=== PATIENT | female | born 1985 | race Caucasian/White ===

== ENCOUNTER 2017-08-04 08:54 | Emergency (ER) | payer SELFPAY ==
[~2017-08-04] VITALS: Ht 142.2 cm; Wt 61.2 kg
--- NOTE | 2017-08-04 08:54 | NUR ---
PATIENT BIBA TO BED 2.
[2017-08-04 08:57] VITALS: BP 138/93
--- NOTE | 2017-08-04 09:10 | NUR ---
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 EMS WAS CALLED BY PTS OLDER SISTER, STATES SHE TOOK SOME OTC SLEEP AID AND 4 TABS OF 5/325MG OF HYDROCODONE. PT VOMITTED UP THE MEDICATION 10 MINS AFTER TAKING. PT PLACED ON ALL MONITORS VSS. PT IS AXO X4, AMBULATES TO BED WITH STEADY GAIT. PT ANSWERING QUESTIONS IN FULL SENTENCES, DENIES N/V OR SOB UPON ASSESSMENT. PT STATES SHE TOOK THE MEDICATION TO FALL ASLEEP AND SHE HAS TAKEN THE SAME THING IN THE PAST. PT DENIES SI/HI. PENDING MD LEÓN.
--- NOTE | 2017-08-04 09:16 | NUR ---
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 EMS WAS CALLED BY PTS OLDER SISTER, STATES SHE TOOK SOME OTC SLEEP AID AND 4 TABS OF 5/325MG OF HYDROCODONE. PT VOMITTED UP THE MEDICATION 10 MINS AFTER TAKING. PT PLACED ON ALL MONIOTS VSS. PT IS AXO X4, AMBULATES TO BED WITH STEADY GAIT. PT ANSWERING QUESTIONS IN FULL SENTENCES, DENIES N/V OR SOB UPON ASSESSMENT. PENDING MD LEÓN.
--- NOTE | 2017-08-04 09:21 | NUR ---
DR BETTENCOURT AT BEDSIDE TO RADHAAL
--- NOTE | 2017-08-04 09:56 | NUR ---
PT SITTING UP IN BED EATING FROM BREAKFAST TRAY.
[2017-08-04 10:43] LABS: BASOPHILS % (AUTO) 0.4 % (0.0-2.0); EOSINOPHILS # (AUTO) 0.1 K/uL (0-0.4); HEMATOCRIT 46.4 % (36-48); HEMOGLOBIN 15.7 g/dL (12.0-16.0); LYMPHOCYTES # (AUTO) 1.2 K/uL (2.5-16.5); LYMPHOCYTES % (AUTO) 17.9 % (20.5-51.1); MEAN CORPUSCULAR HEMOGLOBIN 30 pg (27-31); MEAN CORPUSCULAR HGB CONC 34 g/dL (33-37); MEAN CORPUSCULAR VOLUME 88.1 fL (80-94); MONOCYTES # (AUTO) 0.4 K/uL (0.8-1.0); NEUTROPHILS # (AUTO) 4.9 K/uL (1.8-7.7); NEUTROPHILS % (AUTO) 74.7 % (42.2-75.2); PLATELET COUNT (AUTO) 278 K/uL (140-450); RED BLOOD CELL COUNT(AUTO) 5.27 MIL/uL (4.20-5.40); RED CELL DISTRIBUTION WIDTH 13.2 % (11.6-13.7); WHITE BLOOD COUNT (AUTO) 6.6 K/uL (4.8-10.8)
[2017-08-04 10:56] LABS: APPEARANCE,URINE CLEAR (CLEAR); BILIRUBIN,URINE NEGATIVE (NEGATIVE); BLOOD, URINE TRACE-L (NEGATIVE); LEUKOCYTE ESTERASE ,URINE NEGATIVE (NEGATIVE); NITRITE, URINE NEGATIVE (NEGATIVE); PH,URINE 6.5 (5.0-9.0); UGLUCOSE NEGATIVE (NEGATIVE)
[2017-08-04 11:02] LABS: COLOR,URINE STRAW (YELLOW)
[2017-08-04 11:19] LABS: ACETAMINOPHEN 20.7 ug/ml (10-30); ALBUMIN 4.1 g/dL (3.4-5.0); ASPARTATE AMINOTRANSFERASE 27 U/L (15-37); CHLORIDE 104 mmol/L (98-107); CREATININE 0.7 mg/dL (0.6-1.3); GFR ARICAN-AMERICAN 124 mL/min (>90); GLUCOSE 82 mg/dL (74-106); POTASSIUM 3.8 mmol/L (3.5-5.1); SODIUM SERUM 141 mmol/L (136-145); THYROID STIMULATING HORMONE 0.77 uIU/mL (0.34-3.74); UREA NITROGEN, BLOOD 9 mg/dL (7-18)
[2017-08-04 11:21] LABS: ANION GAP 13.3 (8-16); CARBON DIOXIDE 27.5 mmol/L (21-32); SALICYLATE < 2.8 mg/dL (2.8-20.0)
[2017-08-04 11:54] VITALS: BP 131/78
--- NOTE | 2017-08-04 11:55 | NUR ---
Patient discharged with v/s stable. Written and verbal after care instructions given and explained. Patient verbalized understanding. Ambulatory with steady gait. All questions addressed prior to discharge. Advised to follow up with PMD.
== END 2017-08-04 11:15 | disposition home or self-care (01) ==
LOC: MED 08:54
DX: T45.0X1A Poisoning by antiallergic and antiemetic drugs, accidental (unintentional), initial encounter (principal); Y92.89 Other specified places as the place of occurrence of the external cause; G47.00 Insomnia, unspecified; F41.9 Anxiety disorder, unspecified
CPT/HCPCS: 36415; 80053; 81003; 81025; 84443; 85025; 99284; G0480; G0482

== ENCOUNTER 2023-08-13 20:30 | Emergency (ER) | payer OTHER ==
[~2023-08-13] VITALS: Ht 147.3 cm; Wt 66.7 kg
[2023-08-13 20:54] VITALS: BP 116/78; PULSE 85; RESP 20; TEMP 97.9; O2SAT 98
[2023-08-13 21:03] VITALS: O2SAT 98
[2023-08-13 21:47] LABS: BASOPHILS # (AUTO) 0.1 K/uL (0.00-0.22); BASOPHILS % (AUTO) 1.2 % (0.0-2.0); EOSINOPHILS # (AUTO) 0.2 K/uL (0-0.4); EOSINOPHILS % (AUTO) 3.6 % (0.0-4.0); HEMATOCRIT 37.5 % (36-48); HEMOGLOBIN 13.2 g/dL (12.0-16.0); LYMPHOCYTES # (AUTO) 2.3 K/uL (2.5-16.5); LYMPHOCYTES % (AUTO) 36.5 % (20.5-51.1); MEAN CORPUSCULAR HEMOGLOBIN 30 pg (27-31); MEAN CORPUSCULAR HGB CONC 35 g/dL (33-37); MEAN CORPUSCULAR VOLUME 86.1 fL (80-94); MONOCYTES # (AUTO) 0.5 K/uL (0.8-1.0); MONOCYTES % (AUTO) 7.2 % (1.7-9.3); NEUTROPHILS # (AUTO) 3.3 K/uL (1.8-7.7); NEUTROPHILS % (AUTO) 51.5 % (42.2-75.2); PLATELET COUNT (AUTO) 308 K/uL (140-450); RED BLOOD CELL COUNT(AUTO) 4.35 MIL/uL (4.20-5.40); RED CELL DISTRIBUTION WIDTH 12.7 % (11.6-13.7); WHITE BLOOD COUNT (AUTO) 6.4 K/uL (4.8-10.8)
[2023-08-13 22:15] LABS: ANION GAP 11.8 (8-16); CALCIUM 9.2 mg/dL (8.5-10.1); CARBON DIOXIDE 26.8 mmol/L (21-32); CREATININE 0.6 mg/dL (0.6-1.3); POTASSIUM 3.6 mmol/L (3.5-5.1); TOTAL BILIRUBIN 0.4 mg/dL (0.0-1.0); TOTAL PROTEIN, SERUM 7.6 g/dL (6.4-8.2)
[2023-08-14 00:52] VITALS: O2SAT 98
[2023-08-14 00:53] VITALS: BP 118/81; PULSE 82; RESP 17; TEMP 97.9; O2SAT 100
[2023-08-14] MEDS ORDERED: LINA72CA PO (01:35)
== END 2023-08-14 01:28 | disposition home or self-care (01) ==
LOC: MED 20:30
DX: K59.00 Constipation, unspecified (principal)
CPT/HCPCS: 36415; 74177; 80053; 81025; 83690; 85025; 99285; Q9967